=== PATIENT | female | born 1990 | race Caucasian/White ===

== ENCOUNTER 2021-04-28 15:31 | Emergency (ER) | payer SELFPAY ==
[2021-04-28 15:56] VITALS: BP 135/84; PULSE 103; TEMP 98.5; BMI 26.2
[2021-04-29 23:06] LABS: SARS-CoV-2 NAA Not Detected (Not Detected)
== END 2021-04-28 17:23 | disposition home or self-care (01) ==
LOC: JER 15:31
DX: J06.9 Acute upper respiratory infection, unspecified (principal); R05.9 Cough, unspecified
CPT/HCPCS: 87804; 99283-25; C9803; U0003; U0005

== ENCOUNTER 2024-01-10 08:08 | Emergency (ER) | payer OTHER ==
[2024-01-10 08:13] VITALS: BP 119/72; PULSE 96; RESP 20; TEMP 97.8; BMI 25.8
[2024-01-10] MEDS ORDERED: IBUPROFEN 400 MG TABLET (FP) PO ONE (09:21)
[2024-01-10] MEDS: IBUPROFEN 400 MG TABLET (FP) PO ONE (09:22)
== END 2024-01-10 09:55 | disposition home or self-care (01) ==
LOC: JERFT 08:08
DX: R09.81 Nasal congestion (principal); R05.9 Cough, unspecified; M79.10 Myalgia, unspecified site; R04.0 Epistaxis; R07.9 Chest pain, unspecified; H92.03 Otalgia, bilateral; B34.9 Viral infection, unspecified; J11.1 Influenza due to unidentified influenza virus with other respiratory manifestations; Z20.822 Contact with and (suspected) exposure to COVID-19
CPT/HCPCS: 0241U-QW; 93005; 93010; 99284-25